=== PATIENT | male | born 1970 | race African-American/Black ===

== ENCOUNTER 2019-02-27 08:03 | Emergency (ER) | payer MEDICAID, OTHER ==
[~2019-02-27] VITALS: Ht 205.7 cm; Wt 75.0 kg
[2019-02-27] MEDS ORDERED: IPRATROPIUM BROMIDE (0.02%) 0.5MG/2.5ML NEB HHN STA (09:19)
[2019-02-27] MEDS ORDERED: ALBUTEROL (0.083%) 2.5MG/3ML NEB HHN STA (09:19)
[2019-02-27 12:05] VITALS: BP 132/80
== END 2019-02-27 12:08 | disposition home or self-care (01) ==
LOC: ER 08:03
DX: J40 Bronchitis, not specified as acute or chronic (principal)
CPT/HCPCS: 71045; 93005; 94640; 99283; J7611

== ENCOUNTER 2023-11-20 05:40 | Emergency (ER) | payer MEDICAID ==
[~2023-11-20] VITALS: Ht 180.3 cm; Wt 73.0 kg
[2023-11-20 05:42] VITALS: O2SAT 98
[2023-11-20] MEDS: PREDNISONE 20MG TABLET PO STA (06:07)
[2023-11-20 06:20] LABS: BASOPHILS % 0.5 % (0.0-2.0); EOSINOPHILS % 3.2 % (0.0-5.0); HEMATOCRIT. 41.8 % (42.0-52.0); LYMPHOCYTES % 9.5 % (20.0-50.0); MEAN CORPUSCULAR HEMOGLOBIN 30.9 pg (28.0-32.0); MEAN CORPUSCULAR HGB CONC 33.6 g/dL (31.0-37.0); MEAN CORPUSCULAR VOLUME 91.9 fL (80.0-94.0); MEAN PLATELET VOLUME 7.6 fl (7.4-10.4); MONOCYTES % 6.4 % (2.0-8.0); NEUTROPHILS % 80.4 % (40.0-76.0); PLATELET 274 x1000/uL (130-400); RED BLOOD CELL COUNT 4.55 mill/uL (4.7-6.1); RED CELL DISTRIBUTION WIDTH 13.5 % (11.6-14.6); WHITE BLOOD COUNT 8.7 x1000/uL (4.5-11.0)
[2023-11-20 06:36] LABS: ALANINE AMINOTRANSFERASE 35 IU/L (10-49); ALBUMIN 4.6 g/dL (3.2-4.8); ASPARTATE AMINOTRANSFERASE 49 IU/L (<34); BILIRUBIN TOTAL 0.5 mg/dL (0.1-1.0); CARBON DIOXIDE 25 mEq/L (21-32); CHLORIDE 102 mEq/L (98-107); CREATININE 0.9 mg/dL (0.6-1.3); GLUCOSE 113 mg/dL (70-105); POTASSIUM 3.2 mEq/L (3.5-5.1); PROTEIN TOTAL 7.1 g/dL (6.0-8.3); SODIUM 136 mEq/L (136-145); TROPONIN I HIGH SENSITIVITY 7 ng/L (3.0-53); UREA NITROGEN BLOOD 14 mg/dL (9-23)
[2023-11-20] MEDS: POTASSIUM CHLORIDE 20MEQ/PACKET PO ONE (08:30)
[2023-11-20] MEDS ORDERED: ALBU6.7H15 INH (08:43)
[2023-11-20] MEDS ORDERED: P50 MT (08:43)
[2023-11-20 09:00] LABS: TROPONIN I HIGH SENSITIVITY 10 ng/L (3.0-53)
[2023-11-20 09:05] VITALS: BP 134/95; PULSE 95; RESP 20; TEMP 98
== END 2023-11-20 09:06 | disposition home or self-care (01) ==
LOC: ER 05:40
DX: J45.901 Unspecified asthma with (acute) exacerbation (principal); F12.10 Cannabis abuse, uncomplicated
CPT/HCPCS: 99285; 71045; 80053; 83880; 85025; 84484; 36415; 93005; J7512